=== PATIENT | female | born 1975 | race Caucasian/White ===

== ENCOUNTER 2021-06-06 21:32 | Emergency (ER) | payer OTHER ==
[~2021-06-06] VITALS: Ht 154.9 cm; Wt 62.6 kg
== END 2021-06-07 00:30 | disposition home or self-care (01) ==
LOC: ER 21:34
DX: R07.89 Other chest pain (principal); R05 Cough; U07.1 COVID-19
CPT/HCPCS: 71045; 93005; 99283